=== PATIENT | female | born 1975 | race Caucasian/White ===

== ENCOUNTER 2022-06-22 03:48 | Inpatient (IN) ==
[2022-06-22] MEDS ORDERED: ACETAMINOPHEN 1,000 MG/100 ML VIAL IV STA (04:11)
[2022-06-22] MEDS ORDERED: SODIUM CHLORIDE 0.9% 1000ML 1,000 ML IV SCH ×2 (04:15)
[2022-06-22 04:50] LABS: Basophils # (auto) 0.07 K/uL (0-0.2); Basophils % (auto) 0.5 %; Eosinophils # (auto) 0.29 K/uL (0-0.50); Eosinophils % (auto) 1.9 %; Hematocrit (blood only) 41.3 % (37.0-47.0); Hemoglobin 14.4 g/dl (12.0-16.0); Immature Granulocytes % (auto) 0.7 %; Lymphocytes # (auto) 3.21 K/uL (1.2-3.4); Lymphocytes % (auto) 21.2 %; Mean Corpuscular Hemoglobin 30.3 pg (25.0-34.0); Mean Corpuscular Hgb Conc 34.9 g/dL (32.0-36.0); Mean Corpuscular Volume 86.9 fL (80.0-100.0); Monocytes # (auto) 0.83 K/uL (0.11-0.59); Monocytes % (auto) 5.5 %; Neutrophils # (auto) 10.61 K/uL (1.40-6.50); Neutrophils % (auto) 70.2 %; Platelet Count 305 K/uL (130-400); RDW Coefficient of Variation 11.8 % (11.5-14.5); RDW Standard Deviation 37.3 fL (36.4-46.3); Red Blood Count 4.75 M/uL (4.20-5.40); White Blood Count 15.11 K/ul (4.8-10.8)
[2022-06-22 04:55] LABS: Appearance Urine Turbid (Clear); Bacteria Urine Automated 2+ (Negative); Bilirubin Urine Negative (Negative); Blood Urine 3+ (Negative); Color Urine Orange; Glucose Urine UA Negative (Negative); Ketones Urine Negative (Negative); Leukocyte Esterase Urine 3+ (Negative); Nitrite Urine Negative (Negative); Protein Urine 2+ (Negative); Specific Gravity Urine 1.022 (1.000-1.030); Urobilinogen Urine Negative (Negative); WBC Urine Automated >30 /hpf (0-5); pH Urine 5.5 (4.5-7.5)
[2022-06-22 05:14] LABS: Albumin Globulin Ratio 1.2 (0.9-2); Albumin Level 3.7 gm/dl (3.4-5.0); BUN Creatinine Ratio 34.4 (10-20); Bilirubin,Total 0.5 mg/dl (0.2-1.0); Calcium 9.2 mg/dl (8.5-10.1); Creatinine Clr Calc Pharmacy 141.1 ml/min; Est GFR (African American) 121.4 ml/min; Est GFR (Non-African American) 104.8 ml/min; Potassium 3.3 mmol/L (3.5-5.1); Total Protein 6.7 gm/dl (6.0-8.3)
[2022-06-22 05:30] LABS: RBC Urine Automated >30 /hpf (0-4)
[2022-06-22 05:31] LABS: Cast Urine Automated 0 /lpf (0-5)
[2022-06-22] MEDS ORDERED: OPTIRAY 350 100ml IV ONE (05:40)
[2022-06-22] MEDS ORDERED: CLINDAMYCIN/D5W 600 MG/50 ML BAG IV ONE (07:27)
[2022-06-22] MEDS ORDERED: cefTRIAXone SODIUM 2,000 MG/70 ML BAG IV STA (07:27)
[2022-06-22] MEDS ORDERED: ONDANSETRON INJ 2 MG/ML 2 ML VIAL IV PRN (07:28)
[2022-06-22] MEDS ORDERED: MAGNESIUM HYDROXIDE SUSP 30 ML UDC PO PRN (07:28)
[2022-06-22] MEDS ORDERED: ACETAMINOPHEN 325 MG TAB PO PRN (07:28)
[2022-06-22] MEDS ORDERED: ALUMINUM/MAGNESIUM/SIMETH (MAALOX MAX) 30 ML UDC PO PRN (07:28)
--- NOTE | 2022-06-22 07:40 | CT Scan Report ---
ABDOMEN AND PELVIS CT WITH IV CONTRAST CT DOSE: 1135.44 mGycm HISTORY: low abd pain after hysterectomy TECHNIQUE: Multiaxial CT images of the abdomen and pelvis were performed following the use of intrave nous contrast. A dose lowering technique was utilized adhering to the principles of ALARA. COMPARISON STUDY: Abdomen and pelvis CT 07/14/2015. FINDINGS: The lung bases are clear. No pneumoperitoneum. No pneumatosis. No acute fractures identifie d. Cholecystectomy. The liver, spleen, adrenal glands, pancreas, and kidneys are unremarkable. No hyd ronephrosis. The main portal vein is patent. Normal caliber abdominal aorta. No retroperitoneal or pe lvic lymphadenopathy. Heterogeneous enhancement within the distal left gonadal vein which may represe nt partial thrombus. There is bladder wall thickening with adjacent fat stranding and a small amount of gas. Status post recent hysterectomy with a small amount of gas, fluid, and fat stranding at the v aginal cuff. No well-defined fluid collections at this time to suggest an abscess. Dominant gas also seen within the vagina. The ovaries are normal in size. Small amount of fluid vaginal cuff is slightl y hyperdense and could represent blood products in the setting of recent postoperative change. No lar ge hematoma identified. Colonic diverticulosis. No evidence for acute diverticulitis. The appendix is partially visualized and appears unremarkable. No evidence for a bowel obstruction. IMPRESSION: 1. Status post recent hysterectomy with a small amount of gas at the vaginal cuff. There is also smal l amount of fluid which may represent blood products given the recent postoperative change. No large hematoma identified at this time. This could be due to the expected postoperative change. A developin g abscess could also have a similar appearance. However, no well-defined abscess collection at this t will. 2. Bladder wall thickening with adjacent fat stranding and a small amount of gas. This could be due t o the suspected recent catheterization. A cystitis could also have a similar appearance. Recommend co rrelation with urinalysis. 3. No bowel wall thickening or obstruction. 4. Cholecystectomy. 5. No hydronephrosis. 6. Heterogeneous enhancement within the distal left ovarian vein which could represent partial thromb us. ACT 112: Negative or not required by law. Electronically signed by: John Dover M.D. 06/22/2022 7:39 AM
--- NOTE | 2022-06-22 07:53 | History & Physical Report ---
Date of Service June 22, 2022 Assessment & Plan (1) S/P laparoscopic hysterectomy: Plan: 47 yo female s/p TLH, RSO on 06/05/2022, presenting with increased VB, Abdominal pain and dysuria VSS Afebrile, elevated WBCC CT suggesting cuff cellulitis with bladder inflammation, U/A supporting UTI NO active VB Plan to admit for IV AB t cover UTI and postop cuff cellulitis Dr Perez is notified (2) Post-operative infection: (3) UTI (urinary tract infection): (4) Lower abdominal pain: (5) Vaginal cuff cellulitis: History of Present Illness Chief Complaint: VB, Abdominal pain Primary Care Provider: Josue Garrett DO Patient is a 47 yo female who is s/p TLH on at [facility] on 06/05/[address] Perez She was recovering well, started to have abdominal pain, VB, Leaking urine on 06/19 Passed large blood cloths on 06/20 and has been with light VB Urination is uncomfortable and she thinks she leaks urine ? No fever/ chills/ vomiting. Nausea+ and decreased apetite BM+ but constipated. CT of abdomen / pelvis: IMPRESSION: 1. Status post recent hysterectomy with a small amount of gas at the vaginal cuff. There is also small amount of fluid which may represent blood products given the recent postoperative change. No large hematoma identified at this time. This could be due to the expected postoperative change. A developing abscess could also have a similar appearance. However, no well-defined abscess collection at this time. 2. Bladder wall thickening with adjacent fat stranding and a small amount of gas. This could be due to the suspected recent catheterization. A cystitis could also have a similar appearance. Recommend correlation with urinalysis. 3. No bowel wall thickening or obstruction. 4. Cholecystectomy. 5. No hydronephrosis. 6. Heterogeneous enhancement within the distal left ovarian vein which could represent partial thrombus. U/A suggesting UTI Allergies Allergy/AdvReac Type Severity Reaction Status Date / Time Latex, Natural Rubber Allergy Intermediate Hives Verified 11/03/20 08:27 Influenza Virus Vaccines AdvReac Intermediate BODY ACHES Verified 11/03/20 08:27 nickel AdvReac Intermediate SKIN Verified 11/03/20 08:27 IRRITATION Home Medications Medication Instructions Recorded Confirmed Type escitalopram oxalate 20 mg tablet 20 mg PO HS 02/04/18 11/03/20 History multivitamin 1 tab PO QAM 02/04/18 10/27/20 History pantoprazole 20 mg tablet,delayed 20 mg PO QPM 02/04/18 11/03/20 History release ibuprofen 600 mg tablet 600 mg PO Q6H PRN pain #30 tabs 06/13/18 11/03/20 Rx Patient History Medical History Abnormal uterine bleeding Anemia CHRONIC- BASELINE HGB 10'S IN SETTING OF ABNORMAL UTERINE BLEEDING (REASON FOR PROCEDURE) Anxiety Fatty liver History of COVID-19 dx 03/2020. symptoms: loss of smell and taste, nasal congestion, cough. no hospitalization. no current problems. History of flexible sigmoidoscopy History of MTHFR mutation HETEROZYGOUS; TESTED DUE TO FAMILY HISTORY Morbid obesity Valvular disease ? MR ON REMOTE ECHO 20+YEARS AGO NOT NOTED ON SUBSEQUENT ECHOS PER PATIENT; NO RECENT ECHOS; NO MURMUR NOTED ON PAT EXAM Surgical History History of cholecystectomy History of colonoscopy History of dilatation and curettage X2; D&C, HYSTEROSCOPY= 02/21/18= MAC 3, ETT 7.5 AT [facility] History of esophagogastroduodenoscopy (EGD) History of herniorrhaphy X2; VENTRAL HERNIA (12/2015) S/P endometrial ablation Family History Father Family history of diabetes mellitus Sister Family history of reaction to anesthesia woke up during a procedure Social History Smoking Status: Never smoker Second Hand Exposure: No; Hx Alcohol Use: No Hx Substance Use: No Preferred Language: Kiswahili Communication Ability: Effective Visual Impairment: No Limitations Shop Service Technician Required: No Beliefs That Will Affect Care: None Current Living Situation: Family Feels Safe at Home: Yes Assistive Devices: None Review of Systems as per Subjective / HPI Physical Exam Gastrointestinal (Abdomen): normal bowel sounds, soft, nontender, no hepatosplenomegaly (mild suprapubic tenderness, no rebound) Genitourinary: normal external appearance Speculum/Bimanual Exam: normal appearance of the vagina (cuff seems intact and healing) minimal bleeding Results & Data ([facility]) Vital Signs (Past 12 Hours) Vital Signs Temp Pulse Pulse Resp BP BP Pulse Ox 06/22/22 06:29 80 18 140/80 99 06/22/22 03:51 36.3 C L 80 18 142/82 H 99 O2 Del Method 06/22/22 06:29 Room Air 06/22/22 03:51 Room Air Laboratory Results Lab Results 06/22/22 06/22/22 06/22/22 Range/Units 04:30 04:30 Unknown WBC 15.11 H (4.8-10.8) K/ul RBC 4.75 (4.20-5.40) M/uL Hgb 14.4 (12.0-16.0) g/dl Hct 41.3 (37.0-47.0) % MCV 86.9 (80.0-100.0) fL MCH 30.3 (25.0-34.0) pg MCHC 34.9 (32.0-36.0) g/dL RDW Std Deviation 37.3 (36.4-46.3) fL RDW Coeff of Mayuri 11.8 (11.5-14.5) % Plt Count 305 (130-400) K/uL MPV 9.0 L (9.4-12.4) fL Immature Gran % (Auto) 0.7 % Neut % (Auto) 70.2 % Lymph % (Auto) 21.2 % [place] % (Auto) 5.5 % Eos % (Auto) 1.9 % Baso % (Auto) 0.5 % Neut # (Auto) 10.61 H (1.40-6.50) K/uL Lymph # (Auto) 3.21 (1.2-3.4) K/uL [place] # (Auto) 0.83 H (0.11-0.59) K/uL Eos # (Auto) 0.29 (0-0.50) K/uL Baso # (Auto) 0.07 (0-0.2) K/uL Immature Gran # (Auto) 0.10 (0.01-0.20) K/uL Sodium 137 (136-145) mmol/L Potassium 3.3 L (3.5-5.1) mmol/L Chloride 102 (98-107) mmol/L Carbon Dioxide 27 (21-32) mmol/L Anion Gap 8 (3-11) BUN 22 (6-23) mg/dl Creatinine 0.64 (0.6-1.2) mg/dl Est Cr Clr Drug Dosing 141.1 ml/min Est GFR ( Amer) 121.4 ml/min Est GFR (Non-Af Amer) 104.8 ml/min BUN/Creatinine Ratio 34.4 H (10-20) Glucose 147 H (70-99(Fasting)) mg/dl Calcium 9.2 (8.5-10.1) mg/dl Total Bilirubin 0.5 (0.2-1.0) mg/dl AST 9 L (13-39) U/L ALT 13 (7-52) U/L Alkaline Phosphatase 126 H (34-104) U/L Total Protein 6.7 (6.0-8.3) gm/dl Albumin 3.7 (3.4-5.0) gm/dl Globulin 3.0 (2.5-4.0) gm/dl Albumin/Globulin Ratio 1.2 (0.9-2) Urine Color [place] Urine Appearance Turbid A (Clear) Urine pH 5.5 (4.5-7.5) Ur Specific [place] 1.022 (1.000-1.030) Urine Protein 2+ H (Negative) Urine Glucose (UA) Negative (Negative) Urine Ketones Negative (Negative) Urine Blood 3+ H (Negative) Urine Nitrite Negative (Negative) Urine Bilirubin Negative (Negative) Urine Urobilinogen Negative (Negative) Ur Leukocyte Esterase 3+ H (Negative) Urine WBC (Auto) >30 H (0-5) /hpf Urine RBC (Auto) >30 H (0-4) /hpf U Hyaline Cast (Auto) 0 (0-5) /lpf U Epithel Cells (Auto) 10-20 H (0-5) /lpf Urine Bacteria (Auto) 2+ H (Negative) Urine Yeast Not Reportable Code Status & VTE Plan VTE Prophylaxis Plan VTE Prophylaxis will be ordered: Yes
--- NOTE | 2022-06-22 07:58 | Emergency Department Note ---
History of Present Illness General Chief complaint: Pain (Generalized) Stated complaint: HYSTRECTOMY SURG Time Seen by Provider: 06/22/22 03:58 History of Present Illness Maximum Pain Intensity: 5 This is a 47-year-old female presenting to the emergency department for evaluation of very low abdominal pain and vaginal bleeding. The patient evidently had hysterectomy performed in [facility] [address] Perez. The patient did well with the initial postoperative phase, but has had some persistent vaginal bleeding. She states that yesterday she passed a large clot, which she was told was normal. The patient tonight developed a much worse lower pelvic pain, and was ultimately referred to the ER by GIVING OFFICER as it was after 5 PM. The patient has not had distinct fever, but does have some dizziness. She rates the discomfort a 5/10. No chest pain, chest tightness, or shortness of breath. The pain is very low in the pelvis on both sides. Her urine has been very concentrated and uncomfortable. Home Medications Medication Instructions Recorded Confirmed Type escitalopram oxalate 20 mg tablet 20 mg PO HS 02/04/18 11/03/20 History multivitamin 1 tab PO QAM 02/04/18 10/27/20 History pantoprazole 20 mg tablet,delayed 20 mg PO QPM 02/04/18 11/03/20 History release ibuprofen 600 mg tablet 600 mg PO Q6H PRN pain #30 tabs 06/13/18 11/03/20 Rx Allergies Allergy/AdvReac Type Severity Reaction Status Date / Time Latex, Natural Rubber Allergy Intermediate Hives Verified 11/03/20 08:27 Influenza Virus Vaccines AdvReac Intermediate BODY ACHES Verified 11/03/20 08:27 nickel AdvReac Intermediate SKIN Verified 11/03/20 08:27 IRRITATION Past Med/Surg History Medical History Abnormal uterine bleeding Anemia CHRONIC- BASELINE HGB 10'S IN SETTING OF ABNORMAL UTERINE BLEEDING (REASON FOR PROCEDURE) Anxiety Fatty liver History of COVID-19 dx 03/2020. symptoms: loss of smell and taste, nasal congestion, cough. no hospitalization. no current problems. History of flexible sigmoidoscopy History of MTHFR mutation HETEROZYGOUS; TESTED DUE TO FAMILY HISTORY Morbid obesity Valvular disease ? MR ON REMOTE ECHO 20+YEARS AGO NOT NOTED ON SUBSEQUENT ECHOS PER PATIENT; NO RECENT ECHOS; NO MURMUR NOTED ON PAT EXAM Surgical History History of cholecystectomy History of colonoscopy History of dilatation and curettage X2; D&C, HYSTEROSCOPY= 02/21/18= MAC 3, ETT 7.5 AT [facility] History of esophagogastroduodenoscopy (EGD) History of herniorrhaphy X2; VENTRAL HERNIA (12/2015) S/P endometrial ablation Family History Father Family history of diabetes mellitus Sister Family history of reaction to anesthesia woke up during a procedure Social History Smoking Status: Never smoker Second Hand Exposure: No; Hx Alcohol Use: No Hx Substance Use: No Preferred Language: Yakut Communication Ability: Effective Visual Impairment: No Limitations Header Set Up Operator Required: No Beliefs That Will Affect Care: None Current Living Situation: Family Feels Safe at Home: Yes Assistive Devices: None Review of Systems A total of 10 systems reviewed and were otherwise negative Physical Exam Vital Signs Vital Signs - 24 hr 06/22/22 03:51 06/22/22 06:29 Temperature 36.3 C L Temperature Source Temporal Artery Scan Pulse Rate 80 Pulse Rate [Finger] 80 Respiratory Rate 18 18 Respiratory Effort / Characteristics Non-Labored Spontaneous Respiratory Depth Normal Blood Pressure 142/82 H Blood Pressure [Right Arm] 140/80 Blood Pressure Mean 102 Blood Pressure Mean [Right Arm] 100 Pulse Oximetry 99 99 Oxygen Delivery Method Room Air Room Air Sepsis Recent Fever Within 48 Hours No Sepsis New/Unexplained Change in Mental Status No Sepsis Action Taken by Nursing No Action Required VITALS: Vitals are noted on the nurse's note and reviewed by myself. Vital signs stable. GENERAL: White female who is mildly uncomfortable but cooperative with the examination. HEAD: Normocephalic atraumatic. HEART: Regular rate and rhythm without murmurs gallops or rubs. LUNGS: Clear to auscultation bilaterally without wheezes, rales or rhonchi. No retractions or accessory muscle use. ABDOMEN: Positive normal bowel sounds x 4. Soft with mild low tenderness on palpation. No distinct CVA tenderness. MUSCULOSKELETAL: No muscle atrophy, erythema, or edema noted. Full range of motion in all extremities. NEURO: Patient was alert and oriented to person place and time. CN II through XII grossly intact. Course Administered Medications Discontinued Medications Sodium Chloride (Nss 1000ml) 1,000 mls @ 999 mls/hr IV .Q1H1M MARIE Stop: 06/22/22 05:15 Last Admin: 06/22/22 04:33 Dose: 999 mls/hr Documented By: RADHA Acetaminophen (Ofirmev) 1,000 mg in 100 mls @ 400 mls/hr IV NOW STA Stop: 06/22/22 04:25 Last Infusion: 06/22/22 05:21 Dose: 0 mls/hr Documented By: Admin: 06/22/22 04:34 Dose: 400 mls/hr Documented By: RADHA Sodium Chloride (Nss 1000ml) 1,000 mls @ 999 mls/hr IV .Q1H1M MARIE Stop: 06/22/22 05:15 Last Admin: 06/22/22 04:34 Dose: 999 mls/hr Documented By: RADHA Ioversol (Optiray 350 100ml) 100 ml IV ONCE ONE Stop: 06/22/22 05:41 Last Admin: 06/22/22 05:43 Dose: 84 ml Documented By: YAYA Medical Decision Making Differential Diagnosis Differential diagnosis: Etiologies such as biliary colic, cholecystitis, hepatitis, pancreatitis, card iac disease, pancreatitis, gastritis, peptic ulcer disease, appendicitis, cystitis, diverticulitis, mesenteric ischemia, inflammatory bowel disease, ileus, bowel obstruction, testicular/adnexal torsion, aortic pathology, shingles, as well as others were considered Laboratory Data 06/22/22 04:30 06/22/22 04:30 Lab Results 06/22/22 06/22/22 06/22/22 Range/Units 04:30 04:30 Unknown WBC 15.11 H (4.8-10.8) K/ul RBC 4.75 (4.20-5.40) M/uL Hgb 14.4 (12.0-16.0) g/dl Hct 41.3 (37.0-47.0) % MCV 86.9 (80.0-100.0) fL MCH 30.3 (25.0-34.0) pg MCHC 34.9 (32.0-36.0) g/dL RDW Std Deviation 37.3 (36.4-46.3) fL RDW Coeff of Mayuri 11.8 (11.5-14.5) % Plt Count 305 (130-400) K/uL MPV 9.0 L (9.4-12.4) fL Immature Gran % (Auto) 0.7 % Neut % (Auto) 70.2 % Lymph % (Auto) 21.2 % [place] % (Auto) 5.5 % Eos % (Auto) 1.9 % Baso % (Auto) 0.5 % Neut # (Auto) 10.61 H (1.40-6.50) K/uL Lymph # (Auto) 3.21 (1.2-3.4) K/uL [place] # (Auto) 0.83 H (0.11-0.59) K/uL Eos # (Auto) 0.29 (0-0.50) K/uL Baso # (Auto) 0.07 (0-0.2) K/uL Immature Gran # (Auto) 0.10 (0.01-0.20) K/uL Sodium 137 (136-145) mmol/L Potassium 3.3 L (3.5-5.1) mmol/L Chloride 102 (98-107) mmol/L Carbon Dioxide 27 (21-32) mmol/L Anion Gap 8 (3-11) BUN 22 (6-23) mg/dl Creatinine 0.64 (0.6-1.2) mg/dl Est Cr Clr Drug Dosing 141.1 ml/min Est GFR ( Amer) 121.4 ml/min Est GFR (Non-Af Amer) 104.8 ml/min BUN/Creatinine Ratio 34.4 H (10-20) Glucose 147 H (70-99(Fasting)) mg/dl Calcium 9.2 (8.5-10.1) mg/dl Total Bilirubin 0.5 (0.2-1.0) mg/dl AST 9 L (13-39) U/L ALT 13 (7-52) U/L Alkaline Phosphatase 126 H (34-104) U/L Total Protein 6.7 (6.0-8.3) gm/dl Albumin 3.7 (3.4-5.0) gm/dl Globulin 3.0 (2.5-4.0) gm/dl Albumin/Globulin Ratio 1.2 (0.9-2) Urine Color [place] Urine Appearance Turbid A (Clear) Urine pH 5.5 (4.5-7.5) Ur Specific [place] 1.022 (1.000-1.030) Urine Protein 2+ H (Negative) Urine Glucose (UA) Negative (Negative) Urine Ketones Negative (Negative) Urine Blood 3+ H (Negative) Urine Nitrite Negative (Negative) Urine Bilirubin Negative (Negative) Urine Urobilinogen Negative (Negative) Ur Leukocyte Esterase 3+ H (Negative) Urine WBC (Auto) >30 H (0-5) /hpf Urine RBC (Auto) >30 H (0-4) /hpf U Hyaline Cast (Auto) 0 (0-5) /lpf U Epithel Cells (Auto) 10-20 H (0-5) /lpf Urine Bacteria (Auto) 2+ H (Negative) Urine Yeast Not Reportable Imaging Data Radiologist's Impression: Abdomen/Pelvis CT 06/22/22 04:[address] WITH IV CONTRAST CT DOSE: 1135.44 mGycm HISTORY: low abd pain after hysterectomy TECHNIQUE: Multiaxial CT images of the abdomen and pelvis were performed following the use of intravenous contrast. A dose lowering technique was utilized adhering to the principles of ALARA. COMPARISON STUDY: Abdomen and pelvis CT 07/14/2015. FINDINGS: The lung bases are clear. No pneumoperitoneum. No pneumatosis. No acute fractures identified. Cholecystectomy. The liver, spleen, adrenal glands, pancreas, and kidneys are unremarkable. No hydronephrosis. The main portal vein is patent. Normal caliber abdominal aorta. No retroperitoneal or pelvic lymphadenopathy. Heterogeneous enhancement within the distal left gonadal vein which may represent partial thrombus. There is bladder wall thickening with adjacent fat stranding and a small amount of gas. Status post recent hysterectomy with a small amount of gas, fluid, and fat stranding at the vaginal cuff. No well-defined fluid collections at this time to suggest an abscess. Dominant gas also seen within the vagina. The ovaries are normal in size. Small amount of fluid vaginal cuff is slightly hyperdense and could represent blood products in the setting of recent postoperative change. No large hematoma identified. Colonic diverticulosis. No evidence for acute diverticulitis. The appendix is partially visualized and appears unremarkable. No evidence for a bowel obstruction. IMPRESSION: 1. Status post recent hysterectomy with a small amount of gas at the vaginal cuff. There is also small amount of fluid which may represent blood products given the recent postoperative change. No large hematoma identified at this time. This could be due to the expected postoperative change. A developing abscess could also have a similar appearance. However, no well-defined abscess collection at this time. 2. Bladder wall thickening with adjacent fat stranding and a small amount of gas. This could be due to the suspected recent catheterization. A cystitis could also have a similar appearance. Recommend correlation with urinalysis. 3. No bowel wall thickening or obstruction. 4. Cholecystectomy. 5. No hydronephrosis. 6. Heterogeneous enhancement within the distal left ovarian vein which could represent partial thrombus. ACT 112: Negative or not required by law. Electronically signed by: John Dover M.D. 06/22/2022 7:39 AM MDM Narrative Physical exam and history were performed. Nursing notes, EMR, and Medication List were personally reviewed. No social concerns were identified as barriers to patients care. Patient appears to have had a hysterectomy about 2 weeks ago. On arrival she is with pain in the low pelvis and with urination. She has had some bleeding with this as well. IV access was established and labs were obtained. She was hydrated with normal saline and given IV Tylenol for comfort. She was sent to CT scan for imaging. Urine was obtained. An order was placed for continuous cardiac monitoring. The monitor shows a rate of 80 with sinus rhythm. Patient's blood work is as above and was reviewed. She does have an elevated white blood cell count of 15,000. She does not have a significant anemia or gross electrolyte imbalance. Glucose is 147. Transaminases are not diagnostic. Urine is highly suggestive of infection. CT scan was performed and reviewed by myself and radiology. CT scan is concerning as it may show postoperative infection. She also appears to have cystitis. I did discuss the case with the on-call [facility] GIVING OFFICER, Dr. Burk, who did agree to evaluate the patient at bedside. We will start the patient on Rocephin and clindamycin IV, patient will be admitted through the GIVING OFFICER service. Please see Dr. Burk's dictation for further patient course, plan, disposition. The chart was completed utilizing [employer] Voice Recognition Software. Grammatical errors, random word insertions, pronoun errors, and incomplete sentences are an occasional consequence of this system due to software limitations, ambient noise, and hardware issues. Any formal questions or concerns about the content, text, or information contained within the body of this dictation should be directly addressed to the provider for clarification. . Impression & Plan Post-operative infection, UTI (urinary tract infection), Lower abdominal pain Discharge Plan Visit Data Chief Complaint: Pain (Generalized) Stated Complaint: HYSTRECTOMY SURG ED Provider: Chani Hernandez ED Midlevel Provider: lEiecer Mcfarland Discharge Problem: Post-operative infection, UTI (urinary tract infection), Lower abdominal pain Patient Disposition: Admitted As Inpatient Forms Stand Alone Forms: [facility] Prescriptions Prescriptions: No Action pantoprazole 20 mg Tablet,Delayed Release (Dr/Ec) 20 mg PO QPM escitalopram oxalate 20 mg Tablet 20 mg PO HS multivitamin Tablet 1 tab PO QAM ibuprofen 600 mg Tablet 600 mg PO Q6H PRN (Reason: pain) Qty: 30 0RF Referrals Referrals: Josue Garrett DO [Primary Care Provider] -
[2022-06-22] MEDS: CLINDAMYCIN/D5W 900 MG/50 ML BAG IV SCH ×2 (10:13→17:18)
[2022-06-22] MEDS: LACTATED RINGER'S 1,000 ML IV SCH ×3 (10:47→22:53)
[2022-06-22] MEDS: MULTIVITAMIN TAB PO SCH (12:05)
--- NOTE | 2022-06-22 14:22 | Communication Note ---
Date of Service: June 22, 2022 Medicine was consulted for anticoagulation recommendations for a finding of heterogenous enhancement within the distal left ovarian vein which may represent partial thrombus. Patient recently had a hysterectomy and here with vaginal bleeding and also being treated for a UTI. I would recommend getting a hematology consult for anticoagulation recommen dations regarding this possible partial thrombus especially in the setting of vaginal bleeding. We will defer seeing Ms Abbasi for now. Please co-consult if needed.
[2022-06-22] MEDS ORDERED: ENOXAPARIN 1 MG/KG SQ SCH (15:15)
[2022-06-22] MEDS: IBUPROFEN 600 MG TAB PO PRN (17:17)
[2022-06-22] MEDS: ENOXAPARIN INJ 120 MG/0.8 ML SYR SQ SCH (17:50)
[2022-06-22] MEDS: ESCITALOPRAM OXALATE 20 MG TAB PO SCH (20:37)
[2022-06-22] MEDS: PANTOprazole 40 MG TAB PO SCH ×2 (20:39→22:52)
[2022-06-22] MEDS ORDERED: Nursing to Pharmacy Communication SCH (22:30)
[2022-06-23] MEDS: CLINDAMYCIN/D5W 900 MG/50 ML BAG IV SCH ×3 (01:06→17:30)
[2022-06-23] MEDS: IBUPROFEN 600 MG TAB PO PRN ×2 (04:24→23:13)
[2022-06-23] MEDS: LACTATED RINGER'S 1,000 ML IV SCH ×2 (04:25→23:26)
--- NOTE | 2022-06-23 05:03 | Progress Note ---
Date of Service June 23, 2022 Assessment & Plan Admission and Anticipated Discharge Date Admission Date: June 22, 2022 Subjective I spoke with Hospitalist service who deferred management recommendations to hematology. I spoke to heme/onc attending storage solutions architect Dr. Lei who recommended that we start Lovenox 1 mg/kg bid and when she goes home to start Eliquis 10 mg bid for 7 days then 5 mg bid for 3-6 months. She is to f/u with heme/onc as outpatient. Results & Data ([facility]) Vital Signs (Past 12 Hours) Vital Signs Temp Pulse Resp BP Pulse Ox O2 Del Method 06/23/22 04:28 65 18 120/83 95 Room Air 06/23/22 01:10 80 16 129/70 96 Room Air 06/22/22 20:40 Room Air 06/22/22 21:30 36.7 C 72 18 136/85 98 Room Air
[2022-06-23 06:16] LABS: Basophils # (auto) 0.05 K/uL (0-0.2); Basophils % (auto) 0.6 %; Eosinophils # (auto) 0.74 K/uL (0-0.50); Eosinophils % (auto) 8.5 %; Hematocrit (blood only) 36.2 % (37.0-47.0); Hemoglobin 12.4 g/dl (12.0-16.0); Immature Granulocytes # (auto) 0.07 K/uL (0.01-0.20); Immature Granulocytes % (auto) 0.8 %; Lymphocytes # (auto) 2.64 K/uL (1.2-3.4); Lymphocytes % (auto) 30.3 %; Mean Corpuscular Hemoglobin 30.5 pg (25.0-34.0); Mean Corpuscular Hgb Conc 34.3 g/dL (32.0-36.0); Mean Corpuscular Volume 89.2 fL (80.0-100.0); Mean Platelet Volume 9.1 fL (9.4-12.4); Monocytes # (auto) 0.66 K/uL (0.11-0.59); Monocytes % (auto) 7.6 %; Neutrophils # (auto) 4.55 K/uL (1.40-6.50); Neutrophils % (auto) 52.2 %; Platelet Count 249 K/uL (130-400); RDW Coefficient of Variation 11.9 % (11.5-14.5); RDW Standard Deviation 37.8 fL (36.4-46.3); Red Blood Count 4.06 M/uL (4.20-5.40); White Blood Count 8.71 K/ul (4.8-10.8)
[2022-06-23] MEDS: ENOXAPARIN INJ 120 MG/0.8 ML SYR SQ SCH ×2 (06:32→17:31)
--- NOTE | 2022-06-23 07:32 | Gynecologic Progress Note ---
Date of Service June 23, 2022 Assessment & Plan Admission and Anticipated Discharge Date Admission Date: June 22, 2022 Subjective Patient is reevaluated. She feels about the same but the pain is less than before. No fever chills, nausea vomiting. Urination is still painful but less than before. She has been passing gas but she is constipated and desires a medication. I told her the recommendation from hematology Lovenox here and Tyrell on discharge. Patient declines Tyrell states that her mom and one of her friend Eliquis. She prefers a different medication. Vital Signs Temp Pulse Resp BP Pulse Ox O2 Del Method 06/23/22 04:28 65 18 120/83 95 Room Air 06/23/22 01:10 80 16 129/70 96 Room Air 06/22/22 20:40 Room Air 06/22/22 21:30 36.7 C 72 18 136/85 98 Room Air 06/22/22 11:52 36.6 C 79 18 134/92 97 Room Air 06/22/22 11:01 Room Air 06/22/22 10:49 72 14 125/64 96 Room Air 06/22/22 09:57 77 17 127/59 L 97 Room Air 06/22/22 08:06 Room Air 06/22/22 07:57 84 14 146/67 H 98 Room Air Intake and Output 06/22/22 06/23/22 06/23/22 22:59 06:59 14:59 Intake Total 1050 / 3951.25 1281.25 / 3951.25 Output Total 1050 / 1050 Balance 1050 / 2901.25 231.25 / 2901.25 Intake: IV 1050 / 3951.25 1281.25 / 3951.25 Clindamycin/D5w 900 mg In 50 ml 50 / 150 50 / 150 @ 100 mls/hr IV Q8H MARIE Rx#: [id number] Lactated Ringer's 1,000 ml @ 1000 / 2231.25 1231.25 / 2231.25 125 mls/hr IV .Q8H MARIE Rx#: [id number] Output: Urine 1050 / 1050 # Bowel Movements 0 / 0 Other: # Unmeasured Voids 1 Lab Results 06/22/22 06/22/22 06/22/22 Range/Units 04:30 04:30 08:00 WBC 15.11 H (4.8-10.8) K/ul RBC 4.75 (4.20-5.40) M/uL Hgb 14.4 (12.0-16.0) g/dl Hct 41.3 (37.0-47.0) % MCV 86.9 (80.0-100.0) fL MCH 30.3 (25.0-34.0) pg MCHC 34.9 (32.0-36.0) g/dL RDW Std Deviation 37.3 (36.4-46.3) fL RDW Coeff of Mayuri 11.8 (11.5-14.5) % Plt Count 305 (130-400) K/uL MPV 9.0 L (9.4-12.4) fL Immature Gran % (Auto) 0.7 % Neut % (Auto) 70.2 % Lymph % (Auto) 21.2 % Dodge % (Auto) 5.5 % Eos % (Auto) 1.9 % Baso % (Auto) 0.5 % Neut # (Auto) 10.61 H (1.40-6.50) K/uL Lymph # (Auto) 3.21 (1.2-3.4) K/uL Dodge # (Auto) 0.83 H (0.11-0.59) K/uL Eos # (Auto) 0.29 (0-0.50) K/uL Baso # (Auto) 0.07 (0-0.2) K/uL Immature Gran # (Auto) 0.10 (0.01-0.20) K/uL Sodium 137 (136-145) mmol/L Potassium 3.3 L (3.5-5.1) mmol/L Chloride 102 (98-107) mmol/L Carbon Dioxide 27 (21-32) mmol/L Anion Gap 8 (3-11) BUN 22 (6-23) mg/dl Creatinine 0.64 (0.6-1.2) mg/dl Est Cr Clr Drug Dosing 141.1 ml/min Est GFR ( Amer) 121.4 ml/min Est GFR (Non-Af Amer) 104.8 ml/min BUN/Creatinine Ratio 34.4 H (10-20) Glucose 147 H (70-99(Fasting)) mg/dl Calcium 9.2 (8.5-10.1) mg/dl Total Bilirubin 0.5 (0.2-1.0) mg/dl AST 9 L (13-39) U/L ALT 13 (7-52) U/L Alkaline Phosphatase 126 H (34-104) U/L Total Protein 6.7 (6.0-8.3) gm/dl Albumin 3.7 (3.4-5.0) gm/dl Globulin 3.0 (2.5-4.0) gm/dl Albumin/Globulin Ratio 1.2 (0.9-2) Urine Color Urine Appearance (Clear) Urine pH (4.5-7.5) Ur Specific [place] (1.000-1.030) Urine Protein (Negative) Urine Glucose (UA) (Negative) Urine Ketones (Negative) Urine Blood (Negative) Urine Nitrite (Negative) Urine Bilirubin (Negative) Urine Urobilinogen (Negative) Ur Leukocyte Esterase (Negative) Urine WBC (Auto) (0-5) /hpf Urine RBC (Auto) (0-4) /hpf U Hyaline Cast (Auto) (0-5) /lpf U Epithel Cells (Auto) (0-5) /lpf Urine Bacteria (Auto) (Negative) Urine Yeast SARS-CoV-2, RNA, NAAT NEGATIVE (NEGATIVE) 06/22/22 06/23/22 Range/Units Unknown 05:38 WBC 8.71 (4.8-10.8) K/ul RBC 4.06 L (4.20-5.40) M/uL Hgb 12.4 (12.0-16.0) g/dl Hct 36.2 L (37.0-47.0) % MCV 89.2 (80.0-100.0) fL MCH 30.5 (25.0-34.0) pg MCHC 34.3 (32.0-36.0) g/dL RDW Std Deviation 37.8 (36.4-46.3) fL RDW Coeff of Mayuri 11.9 (11.5-14.5) % Plt Count 249 (130-400) K/uL MPV 9.1 L (9.4-12.4) fL Immature Gran % (Auto) 0.8 % Neut % (Auto) 52.2 % Lymph % (Auto) 30.3 % Dodge % (Auto) 7.6 % Eos % (Auto) 8.5 % Baso % (Auto) 0.6 % Neut # (Auto) 4.55 (1.40-6.50) K/uL Lymph # (Auto) 2.64 (1.2-3.4) K/uL Dodge # (Auto) 0.66 H (0.11-0.59) K/uL Eos # (Auto) 0.74 H (0-0.50) K/uL Baso # (Auto) 0.05 (0-0.2) K/uL Immature Gran # (Auto) 0.07 (0.01-0.20) K/uL Sodium (136-145) mmol/L Potassium (3.5-5.1) mmol/L Chloride (98-107) mmol/L Carbon Dioxide (21-32) mmol/L Anion Gap (3-11) BUN (6-23) mg/dl Creatinine (0.6-1.2) mg/dl Est Cr Clr Drug Dosing ml/min Est GFR ( Amer) ml/min Est GFR (Non-Af Amer) ml/min BUN/Creatinine Ratio (10-20) Glucose (70-99(Fasting)) mg/dl Calcium (8.5-10.1) mg/dl Total Bilirubin (0.2-1.0) mg/dl AST (13-39) U/L ALT (7-52) U/L Alkaline Phosphatase (34-104) U/L Total Protein (6.0-8.3) gm/dl Albumin (3.4-5.0) gm/dl Globulin (2.5-4.0) gm/dl Albumin/Globulin Ratio (0.9-2) Urine Color Mobile Urine Appearance Turbid A (Clear) Urine pH 5.5 (4.5-7.5) Ur Specific [place] 1.022 (1.000-1.030) Urine Protein 2+ H (Negative) Urine Glucose (UA) Negative (Negative) Urine Ketones Negative (Negative) Urine Blood 3+ H (Negative) Urine Nitrite Negative (Negative) Urine Bilirubin Negative (Negative) Urine Urobilinogen Negative (Negative) Ur Leukocyte Esterase 3+ H (Negative) Urine WBC (Auto) >30 H (0-5) /hpf Urine RBC (Auto) >30 H (0-4) /hpf U Hyaline Cast (Auto) 0 (0-5) /lpf U Epithel Cells (Auto) 10-20 H (0-5) /lpf Urine Bacteria (Auto) 2+ H (Negative) Urine Yeast Not Reportable SARS-CoV-2, RNA, NAAT (NEGATIVE) Physical exam: Patient is alert, oriented x3, comfortable and using her computer. Abdomen soft, obese, mild suprapubic tenderness, No vaginal bleeding, Extremities nontender, no edema. Assessment and plan; 47-year-old , status post TLH, RSO, on June 05 at this time [facility], Admitted for abdominal pain, increased vaginal bleeding, UTI symptoms, findings suggesting Cellulitis and UTI and left ovarian vein thrombosis, On IV antibiotics and Lovenox per hematology recommendation, Vital signs stable afebrile, Urine culture pending, Plan to await urine culture for better antibiotic coverage and talk to hematology for another anticoagulant since patient is declining Eliquis, All questions were answered. Results & Data ([facility]) Vital Signs (Past 12 Hours) Vital Signs Temp Pulse Resp BP Pulse Ox O2 Del Method 06/23/22 04:28 65 18 120/83 95 Room Air 06/23/22 01:10 80 16 129/70 96 Room Air 06/22/22 20:40 Room Air 06/22/22 21:30 36.7 C 72 18 136/85 98 Room Air
[2022-06-23] MEDS: cefTRIAXone SODIUM 2,000 MG in DEXTROSE 5% 50 ML IV SCH (08:45)
[2022-06-23] MEDS: METOPROLOL SUCC 25MG EXT REL TAB PO SCH (08:53)
[2022-06-23] MEDS: MULTIVITAMIN TAB PO SCH (08:54)
[2022-06-23] MEDS ORDERED: hydrOXYzine HCl 25 MG TAB PO STA ×2 (12:33→22:14)
[2022-06-23] MEDS: ESCITALOPRAM OXALATE 20 MG TAB PO SCH (20:54)
[2022-06-23] MEDS: PANTOprazole 40 MG TAB PO SCH ×3 (20:54→21:28)
[2022-06-24] MEDS: LACTATED RINGER'S 1,000 ML IV SCH ×2 (00:54→05:39)
[2022-06-24] MEDS: CLINDAMYCIN/D5W 900 MG/50 ML BAG IV SCH ×2 (01:10→11:23)
--- NOTE | 2022-06-24 01:58 | Gynecologic Progress Note ---
Date of Service June 24, 2022 Assessment & Plan Admission and Anticipated Discharge Date Admission Date: June 22, 2022 Subjective I spoke with Insulator Tester earlier yesterday about her anticoagulation plans. Patient declined Eliquis stated that her mom and one of her friend on Eliquis. She preferred a different medication. Hematology recommended Coumadin 5 mg daily together with current Lovenox dose for 5 days and then switch to Coumadin completely. Recommended to to f/u with them Coumadin clinic this week. Patient agreed with that. She started to have VB when she got up for BR. There was a quite amount of blood coming with urine on the hat. It was bright red. She has depends and it is soaked with dark blood, about a pad size. Coming small amount of blood rom vagina. She is concerned about being on blood thinner and bleeding. Plan to hold Lovenox for now and will discuss with hematology and her surgeon in am Check CBC. coags in am Pad count Continue to monitor closely. Results & Data ([facility]) Vital Signs (Past 12 Hours) Vital Signs Temp Pulse Pulse Resp BP Pulse Ox O2 Del Method 06/23/22 23:16 73 18 138/82 95 Room Air 06/23/22 20:00 36.5 C 76 20 127/70 98 Room Air
[2022-06-24 06:33] LABS: Partial Thromboplastin Ratio 1.1; Partial Thromboplastin Time 29.7 Seconds (21.0-31.0); Prothrombin Time 10.9 Seconds (9.0-12.0)
[2022-06-24] MEDS: METOPROLOL SUCC 25MG EXT REL TAB PO SCH (08:21)
[2022-06-24] MEDS: MULTIVITAMIN TAB PO SCH (08:22)
[2022-06-24] MEDS: cefTRIAXone SODIUM 2,000 MG in DEXTROSE 5% 50 ML IV SCH (08:22)
[2022-06-24 10:47] LABS: Basophils # (auto) 0.06 K/uL (0-0.2); Basophils % (auto) 0.8 %; Eosinophils # (auto) 0.85 K/uL (0-0.50); Eosinophils % (auto) 10.7 %; Hematocrit (blood only) 35.5 % (37.0-47.0); Hemoglobin 12.2 g/dl (12.0-16.0); Immature Granulocytes # (auto) 0.05 K/uL (0.01-0.20); Immature Granulocytes % (auto) 0.6 %; Lymphocytes # (auto) 2.03 K/uL (1.2-3.4); Lymphocytes % (auto) 25.7 %; Mean Corpuscular Hemoglobin 30.7 pg (25.0-34.0); Mean Corpuscular Hgb Conc 34.4 g/dL (32.0-36.0); Mean Corpuscular Volume 89.4 fL (80.0-100.0); Mean Platelet Volume 8.9 fL (9.4-12.4); Monocytes # (auto) 0.61 K/uL (0.11-0.59); Monocytes % (auto) 7.7 %; Neutrophils # (auto) 4.31 K/uL (1.40-6.50); Neutrophils % (auto) 54.5 %; Platelet Count 247 K/uL (130-400); RDW Coefficient of Variation 11.9 % (11.5-14.5); RDW Standard Deviation 38.2 fL (36.4-46.3); Red Blood Count 3.97 M/uL (4.20-5.40); White Blood Count 7.91 K/ul (4.8-10.8)
[2022-06-24] MEDS ORDERED: WARFARIN SOD 5 MG TAB PO SCH ×2 (11:15→11:30)
--- NOTE | 2022-06-24 11:48 | Gynecologic Progress Note ---
Date of Service June 24, 2022 Assessment & Plan Admission and Anticipated Discharge Date Admission Date: June 22, 2022 Subjective Patient is reevaluated. Bleeding is minimal She feels much better since she came. She wants to resume Lovenox and okay with Coumadin. Her other and sister had PE in the past. H&H stable Coags WNL Plan to resume Lovenox and send her home as with it for 5 days with Coumadin as per hematology recommendations. Rx is sent Urine cx with EColi, sensitive to Augmentin d/c home and f/u with PCP, Coumadin clinic, Hematology and Dr Perez Results & Data ([facility]) Vital Signs (Past 12 Hours) Vital Signs Temp Pulse Resp BP Pulse Ox O2 Del Method 06/24/22 08:00 36.7 C 62 18 120/79 95 Room Air
== END 2022-06-24 13:28 | disposition home or self-care (01) | DRG 920 ==
LOC: ED 03:48 → 4E1 07:28